=== PATIENT | female | born 1995 | race African-American/Black ===

== ENCOUNTER 2017-01-14 07:25 | Emergency (ER) | payer OTHER ==
[~2017-01-14] VITALS: Ht 167.6 cm; Wt 78.1 kg
[~2017-01-14 07:25] MED LIST: ADDERALL20 MG PO; MUSCLE RELAXER; NEXPLANON68 MG SC; PAIN MED; [UNRECOGNIZED DRUG - REMARK]
[2017-01-14] MEDS ORDERED: NUVARING VAGIN1 EACH VG (07:55)
[2017-01-14] MEDS ORDERED: NAPROXEN500 MG PO (08:36)
[2017-01-14 08:49] VITALS: BP 110/84
== END 2017-01-14 08:51 | disposition home or self-care (01) ==
LOC: EME 07:25
DX: M71.22 Synovial cyst of popliteal space [Baker], left knee (principal)
CPT/HCPCS: 73564; 99281; 99284

== ENCOUNTER 2017-05-29 12:17 | Emergency (ER) | payer OTHER ==
[~2017-05-29] VITALS: Ht 167.6 cm; Wt 82.9 kg
[~2017-05-29 12:17] MED LIST changes: +NAPROXEN500 MG PO; +NUVARING VAGIN1 EACH VG
[2017-05-29] MEDS ORDERED: ZOLPIDEM TART6.25 MG PO (13:43)
[2017-05-29] MEDS ORDERED: DEXTROAMP-AMPHE15 MG PO (13:43)
[2017-05-29] MEDS ORDERED: MOTRIN800 MG PO (14:33)
[2017-05-29] MEDS ORDERED: LIDODERM 5% P1 PATCH TD (14:33)
[2017-05-29] MEDS ORDERED: FLEXERIL10 MG PO (14:33)
[2017-05-29 14:56] VITALS: BP 131/85
== END 2017-05-29 14:57 | disposition home or self-care (01) ==
LOC: EME 12:17
DX: S13.4XXA Sprain of ligaments of cervical spine, initial encounter (principal); S83.92XA Sprain of unspecified site of left knee, initial encounter; V49.40XA Driver injured in collision with unspecified motor vehicles in traffic accident, initial encounter; Y92.410 Unspecified street and highway as the place of occurrence of the external cause; Z72.0 Tobacco use
CPT/HCPCS: 72040; 73564; 99281; 99284; J1885

== ENCOUNTER 2018-01-31 20:23 | Inpatient (IN) | payer OTHER ==
[~2018-01-31] VITALS: Ht 165.1 cm; Wt 78.0 kg
[~2018-01-31 20:23] MED LIST changes: +DEXTROAMP-AMPHE15 MG PO; +FLEXERIL10 MG PO; +LIDODERM 5% P1 PATCH TD; +MOTRIN800 MG PO; +ZOLPIDEM TART6.25 MG PO
[2018-01-31 21:00] LABS: HEMATOCRIT 36.3 % (36.0-46.0); HEMOGLOBIN 12.9 G/DL (11.9-15.5); MCHC 35.5 G/DL (30.0-36.0); MCV 92.8 FL (83-99); PLATELET COUNT 282 K/uL (156-360); RBC DIS.WIDTH-CV 11.9 % (11.8-14.6); RED BLOOD COUNT 3.91 M/uL (3.80-5.20); WHITE BLOOD COUNT 7.2 K/uL (4.1-10.2)
[2018-01-31 21:16] LABS: CHLORIDE 105 mEq/L (99-109); POTASSIUM 3.9 mEq/L (3.7-5.4); SODIUM 134 mEq/L (136-147)
[2018-01-31 21:18] LABS: GLUCOSE 96 mg/dL (70-99)
[2018-01-31 21:21] LABS: SERUM ETHYL ALCOHOL < 10 mg/dL
[2018-01-31 21:22] LABS: CREATININE 0.7 mg/dL (0.6-1.3); GFR ESTIMATE (CALCULATED) > 59 mL/min/
[2018-01-31 21:23] LABS: UREA NITROGEN (BUN) 6 mg/dL (9-23)
[2018-01-31 21:25] LABS: ACETAMINOPHEN (TYLENOL) < 10 mcg/mL (10-30); SALICYLATE < 5.0 MG/DL (15-30)
[2018-01-31 21:43] LABS: QUANTITATIVE HCG > 15000.0 MIU/ML
[2018-01-31 22:14] LABS: AMPHETAMINE NEGATIVE (500 ng/mL); BARBITURATES NEGATIVE (200 ng/mL); BENZODIAZEPINES NEGATIVE (150 ng/mL); BUPRENORPHINE NEGATIVE (10 ng/mL); COCAINE NEGATIVE (150 ng/mL); METHADONE NEGATIVE (200 ng/mL); METHAMPHETAMINE NEGATIVE (500 ng/mL); OPIATES (MORPHINE) NEGATIVE (100 ng/mL); OXYCODONE NEGATIVE (100 ng/mL); PHENCYCLIDINE NEGATIVE (25 ng/mL); PROPOXYPHENE NEGATIVE (300 ng/mL); THC CANNABINOIDS PRESUMPTIVE POSITIVE (50 ng/mL); TRICYCLIC ANTIDEPRESSANTS NEGATIVE (300 ng/mL)
[2018-02-01 00:36] VITALS: BP 123/58
[2018-02-01 07:45] VITALS: BP 114/58
[2018-02-01 16:12] VITALS: BP 115/57
[2018-02-02] MEDS ORDERED: BENADRYL50 MG PO (08:59)
[2018-02-02 09:36] VITALS: BP 107/57
== END 2018-02-02 09:57 | disposition home or self-care (01) | DRG 781 ==
LOC: EME 20:23 → EDOF 23:31 → ENRESERV 02-01 00:13 → 1WEST 02-01 00:24
PROVIDERS: Emergency Medicine
DX: O99.341 Other mental disorders complicating pregnancy, first trimester (principal); F43.23 Adjustment disorder with mixed anxiety and depressed mood; O9A.211 Injury, poisoning and certain other consequences of external causes complicating pregnancy, first trimester; T42.6X2A Poisoning by other antiepileptic and sedative-hypnotic drugs, intentional self-harm, initial encounter; Z3A.10 10 weeks gestation of pregnancy; Z91.5 Personal history of self-harm; O99.321 Drug use complicating pregnancy, first trimester; F12.20 Cannabis dependence, uncomplicated; O99.351 Diseases of the nervous system complicating pregnancy, first trimester; G47.00 Insomnia, unspecified; O99.331 Smoking (tobacco) complicating pregnancy, first trimester; F17.200 Nicotine dependence, unspecified, uncomplicated
CPT/HCPCS: 76801; 80048; 84702; 84999; 85027; 90839; 99281; 99285; G0480